=== PATIENT | female | born 1960 | race Caucasian/White ===

== ENCOUNTER 2017-05-04 13:37 | Emergency (ER) | payer BC ==
[2017-05-04] MEDS ORDERED: Albuterol HFA INHALER* 8 gm MDI INH ONE (14:14)
--- NOTE | 2017-05-29 10:39 | UC ---
Nik Simeon Angela, scribed for Francisca Leon MD on 05/04/17 at 1405 . General HPI - HPI Summary HPI Summary: This pt is a 56 y/o female presenting to [facility] c/o rhinorrhea, ear ache x1 week and cough x4 days. Pt additionally c/o fever 2 days ago. She states that she her cough has been keeping her up at night. Pt notes abd upset when coughing. At onset of her symptoms pt thought it was her allergies. Pt denies rash. Pt denies tobacco use. Pt is currently taking vitamins (vitamin B) Allergies: sulfa antibiotics. Pt denies PMHx of diabetes. 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 She lives in [place], [place]. - History of Current Complaint Chief Complaint: UCRespiratory Stated Complaint: URI Time Seen by Provider: 05/04/17 13:59 Hx Obtained From: Patient Onset/Duration: Lasting Days, Still Present Timing: Constant Associated Signs & Symptoms: Positive: Cough, Fever - 2 days ago, Other - abd upset secondary to cough, rhinorrhea, ear ache. - Allergy/Home Medications Allergies/Adverse Reactions: Allergies Allergy/AdvReac Type Severity Reaction Status Date / Time Sulfa Antibiotics Allergy See Comment Verified 05/04/17 13:53 Home Medications: Home Medications Aspirin [Aspirin 81 MG TAB] 81 mg PO 05/04/17 [History] Cholecalciferol [Vitamin D] 1,000 unit PO 05/04/17 [History] Krill Oil [Krill Oil 1000 mg] 1 cap PO 05/04/17 [History] Levothyroxine TAB* [Synthroid TAB*] 50 mcg PO 05/04/17 [History] Melatonin 5 mg PO 05/04/17 [History] Probiotic Product [Acidophilus] 1 cap PO 05/04/17 [History] PMH/Surg Hx/FS Hx/Imm Hx Endocrine History: Thyroid Disease Other Endocrine History: DENIES: diabetes Other Cardiovascular History: DENIES: HTN - Surgical History Surgical History: Yes Surgery Procedure, Year, and Place: hysterectomy - Family History Known Family History: Positive: Diabetes - mother - Social History Occupation: Employed Full-time - [employer], school lunch director Alcohol Use: Rare Substance Use Type: None Smoking Status (MU): Never Smoked Tobacco Review of Systems Constitutional: Fever - 2 days ago Skin: Negative Eyes: Negative ENT: Ear Ache, Other - rhinorrhea Respiratory: Cough Cardiovascular: Negative Gastrointestinal: Negative Genitourinary: Negative Motor: Negative Neurovascular: Negative Musculoskeletal: Negative Neurological: Negative Psychological: Negative Is Patient Immunocompromised?: No All Other Systems Reviewed And Are Negative: Yes Physical Exam Triage Information Reviewed: Yes Appearance: Well-Nourished Vital Signs: Initial Vital Signs Temp 98.1 F 05/04/17 13:49 Pulse 84 05/04/17 13:49 Resp 18 05/04/17 13:49 BP 131/83 05/04/17 13:49 Pulse Ox 98 05/04/17 13:49 Vital Signs Reviewed: Yes Eye Exam: Normal ENT: Positive: Pharynx normal, Other: - cerumen impaction on the left. Neck: Positive: Supple, Nontender Respiratory: Positive: Chest non-tender, Normal breath sounds, No respiratory distress, No accessory muscle use, Wheezing - bilateral expiratory wheezing, Other: - rhonchus on the right base. Cardiovascular Exam: Normal Cardiovascular: Positive: RRR, No Murmur, Pulses Normal, Brisk Capillary Refill Abdominal Exam: Normal Abdomen Description: Positive: Nontender, No Organomegaly, Soft Bowel Sounds: Positive: Present Musculoskeletal Exam: Normal Musculoskeletal: Positive: Strength Intact - moves all 4 ext's Neurological Exam: Normal - nonfocal, grossly intact Psychological Exam: Normal - conversing easily and appropriately Skin Exam: Normal - no visible or reported rash Course/Dx - Course Course Of Treatment: 14:02 - pt is not in room. Elevated BP noted and advised to follow up with her PCP. Reviewed s/sx, f/u pcp. Pt declines work note. - Differential Dx - Multi-Symptom Provider Diagnoses: acute bronchitis Discharge - Discharge Plan Condition: Stable Disposition: HOME Prescriptions: Albuterol HFA INHALER* [Ventolin HFA Inhaler*] 2 puff INH Q4H PRN #1 mdi PRN Reason: wheezing, shortness of breath Azithromyxin JEFF (NF) [Z-Jeff (Zithromax) 250 mg tabs #6] 2 tab PO .TODAY, THEN 1 DAILY #6 tab Patient Education Materials: Acute Bronchitis (ED), Bronchospasm (ED) Referrals: Brit Madrigal DO [Primary Care Provider] - Additional Instructions: Your blood pressure was elevated during today's visit, 131/83. Please follow up with your primary care provider in 1-2 weeks. Follow up with primary care physician for breathing recheck (to make sure wheezing and bronchitis improving), approx 2 weeks, if possible. Seek medical attention for worse or new problems in the meantime. The documentation as recorded by the Nik chun Angela accurately reflects the service I personally performed and the decisions made by me, Francisca Leon MD.
== END 2017-05-04 15:05 | disposition home or self-care (01) ==
LOC: UCEAST 13:37
DX: J20.9 Acute bronchitis, unspecified (principal); H61.22 Impacted cerumen, left ear; Z88.2 Allergy status to sulfonamides; Z90.710 Acquired absence of both cervix and uterus
CPT/HCPCS: 99202; A9270-GY; G0463